=== PATIENT | female | born 1970 | race Two or more races ===

== ENCOUNTER 2024-08-22 09:14 | Emergency (ER) | payer OTHER ==
[~2024-08-22] VITALS: Ht 162.6 cm; Wt 61.2 kg
[2024-08-22] MEDS ORDERED: LEVALBUTEROL HCL 1.25 MG/3 ML SOLUTION IH ONE (09:50)
[2024-08-22] MEDS ORDERED: IPRATROPIUM BROMIDE 0.5 MG/2.5 ML AMPUL.NEB IH ONE (09:50)
[2024-08-22] MEDS ORDERED: MAGNESIUM SULFATE 50% 1,000 MG/2 ML VIAL ONE (09:53)
[2024-08-22] MEDS ORDERED: METHYLPREDNISOLONE SOD SUCC 125 MG VIAL ONE (09:53)
[2024-08-22 10:00] LABS: ABG PH 7.499 (7.35-7.45); ABG PO2 98.5 mmHg (80-100); ABG pCO2 30.4 mmHg (35-45); BASE EXCESS 0.9 mmol/l; BICARBONATE 23.1 mmol/l (23-25); SaO2 98.3 %
[2024-08-22] MEDS ORDERED: MAGNESIUM SULFATE IN WATER 2 GM/50 ML PIGGYBAG IV ONE (10:00)
[2024-08-22] MEDS ORDERED: METHYLPREDNISOLONE SOD SUCC 125 MG VIAL IV ONE (10:00)
[2024-08-22] MEDS ORDERED: IPRATROPIUM BROMIDE 0.5 MG/2.5 ML AMPUL.NEB IH SCH (10:00)
[2024-08-22] MEDS ORDERED: LEVALBUTEROL HCL 1.25 MG/3 ML SOLUTION IH SCH (10:00)
[2024-08-22 10:03] LABS: allen test SATISFACTORY; o2 21 %; puncture site RADIAL LEFT
[2024-08-22 10:25] LABS: HEMATOCRIT 41.5 % (36.0-45.00); HEMOGLOBIN 14.2 g/dL (12.0-15.00); MEAN CELL VOLUME 90.8 fL (80.00-100.00); MEAN CORPUSCULAR HEMOGLOBIN 31.1 pg (27.00-32.0); MEAN CORPUSCULAR HGB CONC 34.2 g/dl (32.0-36.0); PLATELET COUNT 279 K/uL (150-450); RED BLOOD COUNT 4.57 M/uL (4.00-6.00); RED CELL DISTRIBUTION WIDTH 14.1 % (11.5-14.5)
[2024-08-22] MEDS ORDERED: VENTOLIN HFA18 GM IH (11:49)
== END 2024-08-22 12:41 | disposition home or self-care (01) ==
LOC: ER 09:16
PROVIDERS: General Practice
DX: J45.901 Unspecified asthma with (acute) exacerbation (principal); Z20.822 Contact with and (suspected) exposure to COVID-19; Z88.0 Allergy status to penicillin; Z91.013 Allergy to seafood